=== PATIENT | female | born 1995 ===

== ENCOUNTER 2017-03-08 12:46 | Inpatient (IN) | payer OTHER ==
--- NOTE | 2017-03-08 13:02 | ED PDOC ---
HPI: Psych/Substance Abuse Time Seen by Provider: 03/08/17 12:50 Chief Complaint (Nursing): Psychiatric Evaluation Chief Complaint (Provider): Psych evaluation History Per: Patient History/Exam Limitations: no limitations Current Symptoms Are (Timing): Still Present Additional Complaint(s): Patient is a 21 y/o female with no significant past medical history brought to the emergency department by EMS for a psych evaluation. Friend called police after patient attempted to hurt herself. Admits to history of cutting and reports being under a lot of pressure and feeling overwhelmed with life. Also admits to suicidal ideation. As noted by medics, patient presents with cuts to her thighs. Denies previous admissions, medications, drug or alcohol abuse, homicidal ideation or other complaints. PCP: none provided. Past Medical History Reviewed: Historical Data Vital Signs: Last Vital Signs Temp 98.6 F 03/08/17 12:49 Pulse 79 03/08/17 12:49 Resp 16 03/08/17 12:49 BP 122/88 03/08/17 12:49 Pulse Ox 95 03/08/17 12:49 - Family History Family History: States: No Known Family Hx - Allergies Allergies/Adverse Reactions: Allergies Allergy/AdvReac Type Severity Reaction Status Date / Time shellfish derived Allergy ANGIOEDEMA Verified 03/08/17 12:49 Review of Systems ROS Statement: Except As Marked, All Systems Reviewed And Found Negative Psych: Positive for: Suicidal ideation. Negative for: Other (homicidal ideation ) Physical Exam - Reviewed Nursing Documentation Reviewed: Yes Vital Signs Reviewed: Yes - Physical Exam Appears: Positive for: Non-toxic Head Exam: Positive for: ATRAUMATIC, NORMAL INSPECTION, NORMOCEPHALIC Skin: Positive for: Normal Color, Warm, Dry Eye Exam: Positive for: Normal appearance Neck: Positive for: Normal Cardiovascular/Chest: Positive for: Regular Rate, Rhythm Respiratory: Negative for: Accessory Muscle Use, Respiratory Distress Extremity: Positive for: Normal ROM, Other (Multiple superficial lacerations on left proximal thigh. 5 cm in length.) Neurologic/Psych: Positive for: Alert, Oriented (x3) - Laboratory Results Result Diagrams: 03/08/17 14:30 03/08/17 14:30 Urine POC: Negative Urine dip results: Positive for: Ketones (TRACE). Negative for: Leukocyte Esterase, Blood, Nitrate, Glucose, Bilirubin - ECG O2 Sat by Pulse Oximetry: 95 (RA) Pulse Ox Interpretation: Normal - Progress ED Course And Treament: PATIENT ATE MEAL IN ED. SEEN BY CRISIS. ADMITTED TO DR. JAMES. DIAGNOSIS DEPRESSION Medical Decision Making Medical Decision Makin:10 Initial impression: Psych evaluation Initial plan: Labs ED Urine ED Urine Dipstick Urinalysis ~ Scribe Attestation: Documented by Tita Griffin, acting as a scribe for TIFFANI Solis. Provider Scribe Attestation: All medical record entries made by the Scribe were at my direction and personally dictated by me. I have reviewed the chart and agree that the record accurately reflects my personal performance of the history, physical exam, medical decision making, and the department course for this patient. I have also personally directed, reviewed, and agree with the discharge instructions and disposition. Disposition - Clinical Impression Clinical Impression: Depression - Patient ED Disposition Is Patient to be Admitted: Yes - Disposition Disposition Time: 16:20 Condition: FAIR Forms: Very [place] Art (Syrian) - Pt Status Changed To: Hospital Disposition Of: Inpatient - Admit Certification Admit to Inpatient:: After my assessment, the patient will require hospitalization for at least two midnights. This is because of the severity of symptoms shown, intensity of services needed, and/or the medical risk in this patient being treated as an outpatient.
[2017-03-08 14:42] LABS: BASO # 0.1 K/uL (0.0-0.2); BASO % 0.8 % (0.0-2.0); EOS % 0.7 % (0.0-4.0); HEMATOCRIT 44.6 % (34.0-47.0); MEAN CELL VOLUME 91.4 fl (81.0-99.0); MEAN CORPUSCULAR HEMOGLOBIN 30.7 pg (27.0-31.0); MEAN CORPUSCULAR HGB CONC 33.6 g/dL (33.0-37.0); MEAN PLATELET VOLUME 9.6 fl (7.2-11.7); MONO # 0.2 K/uL (0.0-0.8); MONO % 3.4 % (0.0-10.0); NEUT # 4.2 K/uL (1.8-7.0); NEUT % 65.1 % (50.0-75.0); NRBC % 0.1 % (0.0-0.0); RED CELL DISTRIBUTION WIDTH 13.1 % (11.5-14.5); WHITE BLOOD COUNT 6.5 K/uL (4.8-10.8)
[2017-03-08 14:54] LABS: ALB/GLOB RATIO 1.2 (1.0-2.1); ALCOHOL SERUM < 10 mg/dl (0-10); ALKALINE PHOSPHATASE 56 U/L (38-126); ALT/SGPT 21 U/L (9-52); AST/SGOT 24 U/L (14-36); BILIRUBIN,TOTAL 0.4 mg/dl (0.2-1.3); BLOOD UREA NITROGEN 8 mg/dl (7-17); CALCIUM 9.2 mg/dL (8.4-10.2); CARBON DIOXIDE 22 mmol/L (22-30); CHLORIDE 107 mmol/L (98-107); GFR AFRICAN-AMERICAN > 60; GLUCOSE,RANDOM 129 mg/dL (65-105); POTASSIUM 3.8 MMOL/L (3.6-5.0); SODIUM 142 mmol/l (132-148); TOTAL PROTEIN 7.9 G/DL (6.3-8.2)
[2017-03-08 15:38] LABS: URINE COLOR YELLOW (YELLOW)
[2017-03-08 15:39] LABS: URINE BILIRUBIN NEGATIVE (NEGATIVE); URINE GLUCOSE (UA) NEGATIVE (Normal); URINE KETONE 15 mg/dL (NEGATIVE)
[2017-03-08 15:40] LABS: PH,URINE 6.5 (5.0-8.0); URINE BLOOD NEGATIVE (NEGATIVE); URINE LEUKOCYTE ESTERASE NEGATIVE Leu/uL (Negative); URINE PROTEIN TRACE mg/dL (NEGATIVE); URINE UROBILINOGEN 0.2 mg/dL (0.2-1.0)
[2017-03-08 15:41] LABS: RBC URINE 3 /hpf (0-3); WBC URINE 5 /hpf (0-5)
[2017-03-08 16:52] VITALS: O2SAT 100
[2017-03-08] MEDS ORDERED: Magnesium Hydroxide Susp 30 ml UD PO PRN (21:51)
[2017-03-08] MEDS ORDERED: DiphenhydrAMINE 50 mg/ml Inj IM PRN (21:51)
[2017-03-08] MEDS ORDERED: Alum-Mag Hydrox-Simethicone Susp (30 mL) PO PRN (21:51)
--- NOTE | 2017-03-08 22:28 | PCM.BM ---
<Darling Safnord - Last Filed: 03/08/17 22:29> Treatment Plan Problems - Problems identified on initial assessmt Hopelessness/Helplessness Date Initiated: 03/08/17 Time Initiated: 22:27 Assessment reference: NA Status: Active Treatment assets and liabiliti Patient Assests: adapts well, cooperative, educated, insightful, motivated, self -reliant, ADL independent, physically healthy, negotiates basic needs, cognitively intact, good interpersonal skills Patient Liabilities: relationship conflicts - Milieu Protocol Maintain good personal hygiene: daily Encourage regular showers, daily Remind patient to perform daily oral care, daily Assist patient to perform ADL's Maintain personal safety: every shift Educate patient to report safety concerns to staff, every shift Monitor environment for contraband/sharps Medication safety: Monitor for expected outcome, potential side effects: every shift, Assess barriers to learning: every shift, Assess readiness for medication education: every shift <Karishma Camarena - Last Filed: 03/09/17 10:25> - Diagnosis (1) Mood disorder Status: Acute Interventions: Medication management, Individual and group therapy, Psychoeducation 03/09/17 10:26 (2) Borderline personality disorder Status: Acute Interventions: Medication management, Individual and group therapy, Psychoeducation 03/09/17 10:26 <Zoila Case - Last Filed: 03/10/17 13:41> Family Contact Family contact: Patient agrees to contact, Family has been contacted by patient , Telephone contact initiated by staff, Family meeting planned to review treatment plan Family contact name: Gisella - mother Family contacted how many times per week?: 1 Family contact comment: [phone] - Outside Agency [facility] Care involvment: Information-sharing Agency contact name: Anila Guy APN Agency contact number: [phone] - Goals for Treatment Patient goals for treatment: Pt to be encouraged to attend activity and clinical groups 3-5x per week to identify at least 2 contributing factors to depression and suicide attempt. Psycho-education to be provided to patient/ family regarding benefits of medications and treatment adherence. Pt to be encouraged to participate in group milieu to develop effective coping skills to reduce depression and free of suicide ideation. Coordinate discharge resource needs by providing referral for psychiatric treatment follow up in the community. Discharge/Continuing Care - Education Needs Education Needs: Family Medication, Family Diagnosis/Disease Process, Family Coping Skills, Family Anger Management skills, Family Placement options, Family Community resources, Family Health Practices/Safety, Family Personal Hygiene/ Grooming, Family Aftercare Safety Plan, Patient Medication, Patient Diagnosis/ Disease Process, Patient Coping Skills, Patient Anger Management skills, Patient Placement options, Patient Community resources, Patient Health Practices /Safety, Patient Personal Hygiene/Grooming, Patient Aftercare Safety Plan - Discharge Discharge Criteria: Tolerates medication w/o severe side effects, Free of Suicidal thoughts, Normal sleep pattern, Ability to care for self, Reduction of target symptoms Discharge to:: Home, With Family - Additional Comments 03/10/17 13:40 Pt seen and discussed in team meeting. Reason for admission reviewed. Pt's medications reviewed. Discharge planning and after care discussed. Pt scheduled for discharge today. Pt reported that she might take her mother on the offer of her staying at the house for a couple of nights. Pt verbalized understanding that she must comply with treatment and home medications. - Treatment Team Participation Discussed with Family/SO: No (To be discussed via telephone) Was Patient/Family/SO present at Treatment Team Meeting: Yes
[2017-03-09 05:52] VITALS: TEMP 97.1
[2017-03-09 07:11] LABS: HEMATOCRIT 39.3 % (34.0-47.0); MEAN CELL VOLUME 91.3 fl (81.0-99.0); MEAN CORPUSCULAR HEMOGLOBIN 30.4 pg (27.0-31.0); MEAN CORPUSCULAR HGB CONC 33.3 g/dL (33.0-37.0); RED CELL DISTRIBUTION WIDTH 13.3 % (11.5-14.5); WHITE BLOOD COUNT 8.6 K/uL (4.8-10.8)
[2017-03-09 07:29] LABS: ALB/GLOB RATIO 1.2 (1.0-2.1); ALKALINE PHOSPHATASE 47 U/L (38-126); ALT/SGPT 21 U/L (9-52); AST/SGOT 13 U/L (14-36); BILIRUBIN,TOTAL 0.3 mg/dl (0.2-1.3); BLOOD UREA NITROGEN 11 mg/dl (7-17); CARBON DIOXIDE 23 mmol/L (22-30); CHLORIDE 109 mmol/L (98-107); CHOLESTEROL 189 mg/dL (0-199); GFR AFRICAN-AMERICAN > 60; GLUCOSE,RANDOM 91 mg/dL (65-105); POTASSIUM 3.8 MMOL/L (3.6-5.0); SODIUM 142 mmol/l (132-148)
[2017-03-09 07:45] LABS: T4 14.2 ug/dl (5.5-11.0)
[2017-03-09 07:58] LABS: THYROID STIMULATING HORMONE 1.13 mIU/ML (0.46-4.68)
--- NOTE | 2017-03-09 08:16 | CP.PCM.CON ---
History of Present Illness - History of Present Illness History of Present Illness: 21 y/o female with PMHx of depression seen at bedside in psych unit. Pt states she was admitted yesterday because she was feeling sad and low and was cutting herself at her inner thigh. Pt states she often experiences these feelings and does not manage them with medications at home. Pt relates a history of seeing therapists and a brief medical treatment with Wellbutrin and Lexapro, but cannot remember if these medicines were helpful. Pt states she cut herself with a razor yesterday on her left thigh, which helps her to feel better. Pt states she did not wish to kill herself and does not experience suicidal or homicidal ideations. Pt states she is good at coping with her anxiety and depression at home but would like to see a therapist more regularly. Pt denies any pain in the area of her thigh. Pt denies any F/C/N/V/CP/SOB. PSH: tonsillectomy, removal of sinus polyp, repair of deviated septum ALL: shellfish Social: social EtOH. Admits to daily marijuana use. Denies cigarette use Review of Systems - Review of Systems Review of Systems: 12 point ROS performed and negative except per HPI Past Patient History - Past Social History Smoking Status: Former Smoker - CARDIAC Hx Cardiac Disorders: No Hx Hypertension: No - PULMONARY Hx Tuberculosis: No - NEUROLOGICAL HX Cerebrovascular Accident: No Hx Seizures: No - HEENT Hx HEENT Problems: No - RENAL Hx Chronic Kidney Disease: No - ENDOCRINE/METABOLIC Hx Endocrine Disorders: No - HEMATOLOGICAL/ONCOLOGICAL Hx Cancer: No Hx Human Immunodeficiency Virus (HIV): No - INTEGUMENTARY Hx Dermatological Problems: No - MUSCULOSKELETAL/RHEUMATOLOGICAL Hx Musculoskeletal Disorders: No - GASTROINTESTINAL Hx Gastrointestinal Disorders: No - GENITOURINARY/GYNECOLOGICAL Hx Sexually Transmitted Disorders: No - PSYCHIATRIC Hx Anxiety: Yes Hx Depression: Yes Hx Substance Use: Yes ([facility]) - SURGICAL HISTORY Hx Surgeries: No Hx Tonsillectomy: Yes Other/Comment: Deviated septum and removal polyps - ANESTHESIA Hx Anesthesia: No Meds Allergies/Adverse Reactions: Allergies Allergy/AdvReac Type Severity Reaction Status Date / Time shellfish derived Allergy ANGIOEDEMA Verified 03/08/17 12:49 - Medications Medications: Current Medications Acetaminophen (Tylenol 325mg Tab) 650 mg PO Q4 PRN PRN Reason: Pain, moderate (4-7) Al Hydrox/Mg Hydrox/Simethicone (Maalox Plus 30 Ml) 30 ml PO Q4 PRN PRN Reason: Dyspepsia Diphenhydramine HCl (Benadryl) 50 mg IM Q6 PRN PRN Reason: Extrapyramidal S/S Unable PO Diphenhydramine HCl (Benadryl) 50 mg PO Q6 PRN PRN Reason: Extrapyramidal Symptoms Last Admin: 03/09/17 00:11 Dose: 50 mg Haloperidol (Haldol) 5 mg PO Q4 PRN PRN Reason: Agitation Haloperidol Lactate (Haldol) 5 mg IM Q4 PRN PRN Reason: Agitation, Unable to Take PO Lorazepam (Ativan) 2 mg PO Q4 PRN PRN Reason: Agitation Lorazepam (Ativan) 2 mg IM Q4 PRN PRN Reason: Anxiety/Agitation,Unable PO Magnesium Hydroxide (Milk Of Magnesia) 30 ml PO HS PRN PRN Reason: Constipation Physical Exam - Constitutional Appears: Well, Non-toxic, No Acute Distress - Head Exam Head Exam: ATRAUMATIC, NORMAL INSPECTION, NORMOCEPHALIC - Eye Exam Eye Exam: EOMI, Normal appearance, PERRL Pupil Exam: PERRL - ENT Exam ENT Exam: Mucous Membranes Moist - Neck Exam Neck exam: Positive for: Full Rom, Normal Inspection Additional comments: supple, non tender - Respiratory Exam Respiratory Exam: Clear to Auscultation Bilateral, NORMAL BREATHING PATTERN Additional comments: no resp distress, no wheezing, no rales - Cardiovascular Exam Cardiovascular Exam: REGULAR RHYTHM, +S1, +S2 Additional comments: no JVD, no murmur - GI/Abdominal Exam GI & Abdominal Exam: Normal Bowel Sounds, Soft - Rectal Exam Rectal Exam: Deferred - Extremities Exam Extremities exam: Positive for: normal capillary refill, normal inspection, pedal pulses present Additional comments: superficial linear lacerations noted to inner left thigh, ~4-5 cm in length. no drainage, no surrounding erythema, no cellulitic changes, no clinical suspicion of infection - Back Exam Back exam: NORMAL INSPECTION - Neurological Exam Neurological exam: Alert, CN II-XII Intact, Oriented x3 - Psychiatric Exam Psychiatric exam: Anxious Additional comments: no suicidal or homicidal ideations not experiencing depression at this time anxious to leave hospital Results - Vital Signs Recent Vital Signs: Last Vital Signs Temp 97.1 F L 03/09/17 05:51 Pulse 71 03/09/17 05:51 Resp 18 03/09/17 05:51 BP 137/61 03/09/17 05:51 Pulse Ox 100 03/08/17 16:51 - Labs Result Diagrams: 03/09/17 06:45 03/09/17 06:45 Labs: Laboratory Results - last 24 hr 03/08/17 03/08/17 03/08/17 14:30 14:30 14:30 WBC 6.5 RBC 4.88 Hgb 15.0 Hct 44.6 MCV 91.4 MCH 30.7 MCHC 33.6 RDW 13.1 Plt Count 224 MPV 9.6 Neut % (Auto) 65.1 Lymph % (Auto) 30.0 [place] % (Auto) 3.4 Eos % (Auto) 0.7 Baso % (Auto) 0.8 Neut # 4.2 Lymph # 2.0 [place] # 0.2 Eos # 0.0 Baso # 0.1 Sodium 142 Potassium 3.8 Chloride 107 Carbon Dioxide 22 Anion Gap 17 BUN 8 Creatinine 0.7 Est GFR ( Amer) > 60 Est GFR (Non-Af Amer) > 60 Random Glucose 129 H Calcium 9.2 Ferritin Total Bilirubin 0.4 AST 24 ALT 21 Alkaline Phosphatase 56 Total Protein 7.9 Albumin 4.3 Globulin 3.6 Albumin/Globulin Ratio 1.2 Triglycerides Cholesterol LDL Cholesterol Direct HDL Cholesterol Thyroxine (T4) Total T3 TSH 3rd Generation Urine Color Urine Clarity Urine pH Ur Specific [place] Urine Protein Urine Glucose (UA) Urine Ketones Urine Blood Urine Nitrate Urine Bilirubin Urine Urobilinogen Ur Leukocyte Esterase Urine RBC (Auto) Urine Microscopic WBC Ur Squamous Epith Cells Salicylates < 1.0 Urine Opiates Screen Urine Methadone Screen Acetaminophen < 10.0 L Ur Barbiturates Screen Ur Phencyclidine Scrn Ur Amphetamines Screen U Benzodiazepines Scrn U Oth Cocaine Metabols U Cannabinoids Screen Alcohol, Quantitative < 10 03/08/17 03/08/17 03/09/17 14:30 15:00 06:45 WBC 8.6 RBC 4.30 Hgb 13.1 Hct 39.3 MCV 91.3 MCH 30.4 MCHC 33.3 RDW 13.3 Plt Count 202 MPV Neut % (Auto) Lymph % (Auto) [place] % (Auto) Eos % (Auto) Baso % (Auto) Neut # Lymph # [place] # Eos # Baso # Sodium Potassium Chloride Carbon Dioxide Anion Gap BUN Creatinine Est GFR ( Amer) Est GFR (Non-Af Amer) Random Glucose Calcium Ferritin Total Bilirubin AST ALT Alkaline Phosphatase Total Protein Albumin Globulin Albumin/Globulin Ratio Triglycerides Cholesterol LDL Cholesterol Direct HDL Cholesterol Thyroxine (T4) Total T3 TSH 3rd Generation Urine Color Yellow Urine Clarity Clear Urine pH 6.5 Ur Specific [place] 1.010 Urine Protein Trace Urine Glucose (UA) Negative Urine Ketones 15 Urine Blood Negative Urine Nitrate Negative Urine Bilirubin Negative Urine Urobilinogen 0.2 Ur Leukocyte Esterase Negative Urine RBC (Auto) 3 Urine Microscopic WBC 5 Ur Squamous Epith Cells 1 Salicylates Urine Opiates Screen Negative Urine Methadone Screen Negative Acetaminophen Ur Barbiturates Screen Negative Ur Phencyclidine Scrn Negative Ur Amphetamines Screen Negative U Benzodiazepines Scrn Negative U Oth Cocaine Metabols Negative U Cannabinoids Screen Positive H Alcohol, Quantitative 03/09/17 06:45 WBC RBC Hgb Hct MCV MCH MCHC RDW Plt Count MPV Neut % (Auto) Lymph % (Auto) [place] % (Auto) Eos % (Auto) Baso % (Auto) Neut # Lymph # [place] # Eos # Baso # Sodium 142 Potassium 3.8 Chloride 109 H Carbon Dioxide 23 Anion Gap 14 BUN 11 Creatinine 0.8 Est GFR ( Amer) > 60 Est GFR (Non-Af Amer) > 60 Random Glucose 91 Calcium 9.0 Ferritin 38.7 Total Bilirubin 0.3 AST 13 L D ALT 21 Alkaline Phosphatase 47 Total Protein 7.0 Albumin 3.8 Globulin 3.2 Albumin/Globulin Ratio 1.2 Triglycerides 72 Cholesterol 189 LDL Cholesterol Direct 130 H HDL Cholesterol 56 Thyroxine (T4) 14.2 H Total T3 1.56 TSH 3rd Generation 1.13 Urine Color Urine Clarity Urine pH Ur Specific [place] Urine Protein Urine Glucose (UA) Urine Ketones Urine Blood Urine Nitrate Urine Bilirubin Urine Urobilinogen Ur Leukocyte Esterase Urine RBC (Auto) Urine Microscopic WBC Ur Squamous Epith Cells Salicylates Urine Opiates Screen Urine Methadone Screen Acetaminophen Ur Barbiturates Screen Ur Phencyclidine Scrn Ur Amphetamines Screen U Benzodiazepines Scrn U Oth Cocaine Metabols U Cannabinoids Screen Alcohol, Quantitative Assessment & Plan (1) Mood disorder Assessment and Plan: psych to continue with medical management Status: Acute (2) Abrasion of thigh Assessment and Plan: superficial in nature no need for dressing Status: Acute
[2017-03-09] MEDS ORDERED: Albuterol HFA 90 mcg/actuation (8 g) INH PRN (09:52)
--- NOTE | 2017-03-09 10:31 | PCM.PSYCH ---
Initial Psychiatric Evaluation - Initial Psychiatric Evaluation Type of Admission: Voluntary Legal Status: Capacity Chief Complaint (in patient's own words): "I just wanted to talk to a doctor." Patient's Reaction to Hospitalization: HPI: 21 year old, Single, , female referred to ED secondary to Depression with Suicidal Thoughts, plan to cut her inner thigh. Pt admitted to already to cutting her inner thigh yesterday in order to release some emotional pain. Pt stated that the reason she has not been able to go through actually hurting herself are due to her 3 year old sister, and her 2 year old Pitbull whom she dearly loves so much. Pt reported feeling low about self, and having low self-esteem. Patient denies current ideation to kill herself and is requesting to be discharged (signed 48 hour letter). She showed story writer superficial cuts to her inner thigh. She reports that she smokes marijuana daily and believes this helps her mood. +Depressed mood. +Anxiety. +feels stressed. +Has conflict with her family. +Sleeping/eating disturbances. Denies AH/VH/paranoia/delusions. harness worker spoke to the patients mother, Gisella [phone] , for collateral information. As per Gisella, the patient moved out of the house last year. The patient currently lives with her boyfriend, who is now her ex-boyfriend. According to Gisella, the patient called her 2 days ago, crying and the patient started crying today. The patient was on medication according to Gisella, but is not sure what medication she was given when she was seeing a psychiatrist last year. The patient texted her the other day due to having bad thoughts. At this time, Gisella stated that she is not sure what is going on with her daughter or what seems to be the problem. PMHx: Asthma PPHx: H/o outpatient treatment a year ago and tx w/ Wellbutrin and Lexapro, but only used these medications briefly. History of attempted suicide two years ago by tying a belt around her neck, but she decided to stop herself. She also has a history of cutting herself. SHx: Smokes marijuana daily. 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 Lives w/ roommate (ex bf and dog). Current Medications: Active Medications Generic Name Dose Route Start Last Admin Trade Name Freq PRN Reason Stop Dose Admin Acetaminophen 650 mg 03/08/17 21:51 Tylenol 325mg Tab PO Q4 PRN Pain, moderate (4-7) Al Hydrox/Mg Hydrox/Simethicone 30 ml 03/08/17 21:51 Maalox Plus 30 Ml PO Q4 PRN Dyspepsia Albuterol 2 puff 03/09/17 09:52 Ventolin Hfa 90 Mcg/Actuation (8 G) INH Q4H PRN SOB Bacitracin 1 ea 03/09/17 10:30 Bacitracin TOP DAILY BHAVIK Diphenhydramine HCl 50 mg 03/08/17 21:51 Benadryl IM Q6 PRN Extrapyramidal S/S Unable PO Diphenhydramine HCl 50 mg 03/08/17 21:51 03/09/17 00:11 Benadryl PO 50 mg Q6 PRN Administration Extrapyramidal Symptoms Haloperidol 5 mg 03/08/17 21:51 Haldol PO Q4 PRN Agitation Haloperidol Lactate 5 mg 03/08/17 21:51 Haldol IM Q4 PRN Agitation, Unable to Take PO Lorazepam 2 mg 03/08/17 21:48 Ativan PO Q4 PRN Agitation Lorazepam 2 mg 03/09/17 00:15 Ativan IM Q4 PRN Anxiety/Agitation,Unable PO Magnesium Hydroxide 30 ml 03/08/17 21:51 Milk Of Magnesia PO HS PRN Constipation Sertraline HCl 50 mg 03/09/17 10:15 Zoloft PO DAILY BHAVIK Past Psychiatric History - Past Psychiatric History Prior Professional Help: Outpatient psychiatric treatment History of ETOH/Drug Use: Daily Marijuana Use Pertinent Medical Hx (Current Medical&Sleep Prob, Allergies): Allergies Allergy/AdvReac Type Severity Reaction Status Date / Time shellfish derived Allergy ANGIOEDEMA Verified 03/08/17 12:49 Albuterol HFA [Ventolin HFA 90 mcg/actuation (8 g)] 2 puff INH Q4H PRN 03/08/17 Norethindrone-E.estradiol-Iron [Microgestin Fe 1-20 Tablet] 1 tab PO DAILY 03/08 Review of Systems - Psychiatric Psychiatric: As Per HPI, Abnormal Sleep Pattern, Anxiety, Change in Appetite, Depression, Mood Swings, Suicidal Ideation Mental Status Examination - Personal Presentation Personal Presentation: Looks stated age - Affect Affect: Constricted (Tearful) - Motor Activity Motor Activity: Calm - Reliability in Providing Information Reliability in Providing Information: Good - Speech Speech: Organized - Mood Mood: Depressed, Anxious - Formal Thought Process Formal Thought Process: No Impairment - Hallucinations/Delusions Additional comments: No AH/VH/paranoia/delusions - Obsessions/Compulsions Obsessions: No Compulsions: No - Cognitive Functions Orientation: Person, Place, Situation, Time Sensorium: Alert Attention/Concentration: Attentive Judgement: Imparied, as evidence by: Lack of insight into illness Memory: Recent intact, as evidence by: Ability to recall events of the day, Remote intact, as evidenced by: Abilit to recall sig. life events, Remote intact , as evidenced by: Ability to recall historical events - Risk Risk: Suicidal, Self-mutilation - Strength & Assets Inventory Strength & Assets Inventory: Family support, Cooperative DSM 5 DX - DSM 5 DSM 5 Diagnosis: Mood Disorder (MDD vs substanced induced mood disorder), Borderline Personality Disorder, Cannabis Use Disorder - Recommended/Plan of Treatment Treatment Recommendations and Plan of Treatment: Mood Disorder (MDD vs substanced induced mood disorder), Borderline Personality Disorder, Cannabis Use Disorder -Admit to psychiatry -Screen for involuntary admission, patient submitted a 48 hour letter requesting to be discharged -Individual and group therapy -Start [place] r/b/ reviewed, patient given hand-out with information -Disposition planning -Psychoeducation re: substance abuse Projected ELOS: 4-7 days Discharge Plan and Discharge Criteria: Discharge when psychiatrically stable - Smoking Cessation Smoking Cessation Initiated: No Reason for not providing: Not indicated
[2017-03-09] MEDS: Bacitracin 500 Units/gm Oint Foilpak UD TOP SCH (11:34)
[2017-03-10 06:01] VITALS: BP 115/64; PULSE 75; RESP 18
--- NOTE | 2017-03-10 08:06 | PCM.PYCHDC ---
Mental Status Examination - Mental Status Examination Orientation: Person, Place, Situation, Time Memory: Intact Mood: Neutral Affect: Broad Speech: Appropriate Attention: WNL Concentration: WNL Association: WNL Fund of Knowledge: WNL Formal Thought Process: No Impairment Description of patient's judgement and insight: Fair I/J Psychotic Thoughts and Behaviors: No AH/VH/paranoia/delusions Suicidal Ideation: No Current Homicidal Ideation?: No Discharge Summary - Discharge Note Reason for Hospitalization: HPI: 21 year old, Single, , female referred to ED secondary to Depression with Suicidal Thoughts, plan to cut her inner thigh. Pt admitted to already to cutting her inner thigh yesterday in order to release some emotional pain. Pt stated that the reason she has not been able to go through actually hurting herself are due to her 3 year old sister, and her 2 year old Pitbull whom she dearly loves so much. Pt reported feeling low about self, and having low self-esteem. Patient denies current ideation to kill herself and is requesting to be discharged (signed 48 hour letter). She showed insurance underwriter superficial cuts to her inner thigh. She reports that she smokes marijuana daily and believes this helps her mood. +Depressed mood. +Anxiety. +feels stressed. +Has conflict with her family. +Sleeping/eating disturbances. Denies AH/VH/paranoia/delusions. health outreach worker spoke to the patients mother, Gisella [phone] , for collateral information. As per Gisella, the patient moved out of the house last year. The patient currently lives with her boyfriend, who is now her ex-boyfriend. According to Gisella, the patient called her 2 days ago, crying and the patient started crying today. The patient was on medication according to Gisella, but is not sure what medication she was given when she was seeing a psychiatrist last year. The patient texted her the other day due to having bad thoughts. At this time, Gisella stated that she is not sure what is going on with her daughter or what seems to be the problem. PMHx: Asthma PPHx: H/o outpatient treatment a year ago and tx w/ Wellbutrin and Lexapro, but only used these medications briefly. History of attempted suicide two years ago by tying a belt around her neck, but she decided to stop herself. She also has a history of cutting herself. SHx: Smokes marijuana daily. 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 Lives w/ roommate (ex bf and dog). Laboratory Data: Abnormal Lab Results 03/09/17 03/09/17 03/09/17 06:45 06:45 06:45 Hemoglobin A1c 5.3 Ferritin 38.7 Total T3 1.56 TSH 3rd Generation 1.13 RPR Nonreactive Consultations:: List each consultation separately and include: 1. Reason for request. 2. Findings. 3. Follow-up Consultations: Medicine consult Summary of Hospital Course include:: 1. Description of specific treatment plan utilized for patients during their course of treatmen. 2. Summarize the time- course for resolution of acute symptoms and/or regressed behaviors. 3. Describe issues identified and worked on during hospitalization. 4. Describe medication utilized. 5. Describe medical problems identified and treated. 6. Reassessment of suicide risk Summary of Hospital Course: Patient was admitted to the psychiatry unit. Individual and group therapy were provided. Patient submitted a 48 hour letter requesting to be discharged, was screened for involuntary admission and found not to meet criteria. Patient will be discharged today w/ outpatient follow-up. She was started on Zoloft 50 mg PO Daily. Psychoeducation provided to the patient re: chronic marijuana use. Coping mechanisms to deal with self-injurious ideation also discussed. - Diagnosis (1) Mood disorder Current Visit: Yes Status: Acute (2) Borderline personality disorder Current Visit: Yes Status: Acute - Final Diagnosis (DSM 5) Condition upon Discharge: STABLE DSM 5: Mood Disorder (MDD vs substanced induced mood disorder), Borderline Personality Disorder, Cannabis Use Disorder Disposition: HOME/ ROUTINE Follow-up Treatment Plan: Mood Disorder (MDD vs substanced induced mood disorder), Borderline Personality Disorder, Cannabis Use Disorder Patient was admitted to the psychiatry unit. Individual and group therapy were provided. Patient submitted a 48 hour letter requesting to be discharged, was screened for involuntary admission and found not to meet criteria. Patient will be discharged today w/ outpatient follow-up. She was started on Zoloft 50 mg PO Daily. Psychoeducation provided to the patient re: chronic marijuana use. Coping mechanisms to deal with self-injurious ideation also discussed. -Continue Zoloft 50 mg PO Daily -Discharge w/ outpatient follow-up Prescriptions/Medication Reconciliation: Sertraline [Zoloft] 50 mg PO DAILY #30 tab - Smoking Cessation Smoking Cessation Medication prescribed: No Reason for not providing: Not indicated - Antipsychotic Medications Pt discharged on 2 or more routine antipsychotic medications: No
[2017-03-10] MEDS: Bacitracin 500 Units/gm Oint Foilpak UD TOP SCH (08:36)
== END 2017-03-10 12:30 | disposition home or self-care (01) | DRG 881 ==
LOC: H.ER 12:46 → H.ERHOLD 16:24 → H.STEP 18:35
PROVIDERS: ADMIT Psychiatry & Neurology Psychiatry; ATTEND Psychiatry & Neurology Psychiatry
PROC: GZHZZZZ Group Psychotherapy (ICD-10-PCS; principal; 2017-03-08)
PROC: GZ58ZZZ Individual Psychotherapy, Cognitive-Behavioral (ICD-10-PCS; 2017-03-08)
DX: F32.9 Major depressive disorder, single episode, unspecified (principal); R45.851 Suicidal ideations; F60.3 Borderline personality disorder; F41.9 Anxiety disorder, unspecified; F12.90 Cannabis use, unspecified, uncomplicated; J45.909 Unspecified asthma, uncomplicated; Z91.5 Personal history of self-harm; Z87.891 Personal history of nicotine dependence; Z91.013 Allergy to seafood